=== PATIENT | female | born 1985 | race Hispanic/Latino ===

== ENCOUNTER 2017-06-23 08:24 | Emergency (ER) | payer MEDICAID ==
[2017-06-23 08:31] VITALS: BP 125/66; PULSE 67; RESP 20; TEMP 98.8; O2SAT 98
[2017-06-23 08:32] VITALS: BMI 27.9
--- NOTE | 2017-06-23 09:18 | ED PDOC ---
HPI: Abdomen Time Seen by Provider: 06/23/17 08:37 Chief Complaint (Nursing): Abdominal Pain Chief Complaint (Provider): Pelvic Pain History Per: Patient History/Exam Limitations: no limitations Onset/Duration Of Symptoms: Days (x 3 weeks) Current Symptoms Are (Timing): Still Present Location Of Pain/Discomfort: LLQ Associated Symptoms: Fever Additional Complaint(s): Christiana is a 31 y/o female with a history of PCOS, who presents to the ED with left pelvic pain and intermittent fever with a t-max of 101 for the last 3 weeks. She states that she has taken motrin with mild relief. PMD: None Provided Abnormal Vaginal Bleeding: No Past Medical History Reviewed: Historical Data, Nursing Documentation, Vital Signs Vital Signs: Last Vital Signs Temp 98.8 F 06/23/17 08:30 Pulse 67 06/23/17 08:30 Resp 20 06/23/17 08:30 BP 125/66 06/23/17 08:30 Pulse Ox 98 06/23/17 12:13 - Medical History PMH: COPD, Pneumonia Denies: Chronic Kidney Disease Other PMH: PCOS - Surgical History Surgical History: No Surg Hx - Family History Family History: States: Unknown Family Hx - Home Medications Home Medications: Ambulatory Orders Medication Instructions Recorded Levofloxacin [Levaquin] 500 mg PO DAILY #0 tablet 11/26/15 Ibuprofen [Motrin] 600 mg PO TID 7 Days tab 05/06/16 Albuterol 0.083% [Albuterol 0.083% 2.5 mg IH Q4 PRN #20 neb 08/25/16 Inhal Monica (2.5 mg/3 ml) UD] Albuterol HFA [Ventolin HFA 90 1 - 2 puff IH Q4 PRN #1 inhaler 08/25/16 mcg/actuation (8 g)] Azithromycin [Zithromax] 250 mg PO DAILY #6 tab 08/25/16 Guaifenesin [Mucinex] 600 mg PO BID PRN #14 tab.er.12h 08/25/16 Prednisone 50 mg PO DAILY #4 tab 08/25/16 Naproxen [Naprosyn] 500 mg PO BID PRN #15 tablet 06/23/17 - Allergies Allergies/Adverse Reactions: Allergies Allergy/AdvReac Type Severity Reaction Status Date / Time No Known Allergies Allergy Verified 06/23/17 08:34 Review of Systems ROS Statement: Except As Marked, All Systems Reviewed And Found Negative Constitutional: Positive for: Fever Genitourinary Female: Positive for: Pelvic Pain (left sided) Physical Exam - Reviewed Nursing Documentation Reviewed: Yes Vital Signs Reviewed: Yes - Physical Exam Appears: Positive for: Well, Non-toxic, No Acute Distress Head Exam: Positive for: ATRAUMATIC, NORMAL INSPECTION, NORMOCEPHALIC Skin: Positive for: Normal Color, Warm, DRY Eye Exam: Positive for: Normal appearance ENT: Positive for: Normal ENT Inspection Neck: Positive for: Normal, Painless ROM Cardiovascular/Chest: Positive for: Regular Rate, Rhythm Respiratory: Positive for: CNT, Normal Breath Sounds Gastrointestinal/Abdominal: Positive for: Bowel Sounds, Soft, Tenderness (LLQ). Negative for: Guarding, Rebound Back: Positive for: Normal Inspection Extremity: Positive for: Normal ROM Neurologic/Psych: Positive for: Alert, Oriented - Laboratory Results Result Diagrams: 06/23/17 09:46 06/23/17 09:46 - ECG O2 Sat by Pulse Oximetry: 98 (RA) Pulse Ox Interpretation: Normal Medical Decision Making Medical Decision Making: Initial Impression: Ovarian Cyst, Ovarian Torsion, TOA Initial Plan --CMP --Urine --Urine dipstick --CBC --Blood Culture --Urinalysis --US Pelvic/Transvag --Reevaluation Time: 11:55 US Abd/Pelvis FINDINGS: UTERUS: Measures 3.9 x 5.1 x 9.9 cm. Normal in size and appearance. Moderately heterogeneous uterus a finding noted previously. No fibroid or other mass lesion seen. ENDOMETRIUM: Measures 8.9 mm in diameter. No ultrasound findings to suggest gestational sac, fluid, debris, mass or polyp or other pathologic process within the endometrium. CERVIX: No cervical abnormality identified. RIGHT OVARY: Measures 1.7 x 2.7 x 2.8 cm. No solid mass. Normal flow. LEFT OVARY: Measures 2.2 x 3 x 3.1 cm. No solid mass. Normal flow. FREE FLUID: No significant free fluid noted. OTHER FINDINGS: None. IMPRESSION: No significant or acute findings to account for/ related to the clinical presentation. No significant interval change compared to the prior examination(s ). ~ Scribe Attestation: Documented by Yoni Lepe, acting as a scribe for Dr. Aria Gaspar. Provider Scribe Attestation: All medical record entries made by the Scribe were at my direction and personally dictated by me. I have reviewed the chart and agree that the record accurately reflects my personal performance of the history, physical exam, medical decision making, and the department course for this patient. I have also personally directed, reviewed, and agree with the discharge instructions and disposition. Disposition - Clinical Impression Clinical Impression: Pelvic pain - Disposition Referrals: [facility] [Outside] Disposition: Routine/Home Disposition Time: 12:10 Condition: STABLE Prescriptions: Naproxen [Naprosyn] 500 mg PO BID PRN #15 tablet PRN Reason: Pain, Moderate (4-7) Instructions: Pelvic Pain in Women (ED) Forms: [employer] ([place])
[2017-06-23 09:54] LABS: BASO % 0.6 % (0.0-2.0); EOS # 0.1 K/uL (0.0-0.7); EOS % 2.2 % (0.0-4.0); HEMATOCRIT 39.5 % (34.0-47.0); LYMPH # 2.4 K/uL (1.0-4.3); LYMPH % 41.8 % (20.0-40.0); MEAN CELL VOLUME 92.8 fl (81.0-99.0); MEAN CORPUSCULAR HGB CONC 33.4 g/dL (33.0-37.0); MEAN PLATELET VOLUME 8.3 fl (7.2-11.7); MONO # 0.3 K/uL (0.0-0.8); MONO % 4.9 % (0.0-10.0); NEUT # 2.8 K/uL (1.8-7.0); NEUT % 50.5 % (50.0-75.0); RED CELL DISTRIBUTION WIDTH 15.1 % (11.5-14.5); WHITE BLOOD COUNT 5.6 K/uL (4.8-10.8)
[2017-06-23 10:02] LABS: RBC URINE < 1 /hpf (0-3); URINE BACTERIA RARE (<OCC); URINE BILIRUBIN NEGATIVE (NEGATIVE); URINE BLOOD SMALL (NEGATIVE); URINE COLOR STRAW (YELLOW); URINE GLUCOSE (UA) NEG (Normal); URINE KETONE NEGATIVE (NEGATIVE); URINE LEUKOCYTE ESTERASE NEG Leu/uL (Negative); URINE PROTEIN NEGATIVE (NEGATIVE); URINE UROBILINOGEN 0.2-1.0 mg/dL (0.2-1.0); WBC URINE < 1 /hpf (0-5)
[2017-06-23 10:10] LABS: ALB/GLOB RATIO 1.3 (1.0-2.1); ALKALINE PHOSPHATASE 85 U/L (38-126); ALT/SGPT 30 U/L (9-52); AST/SGOT 31 U/L (14-36); BILIRUBIN,TOTAL 0.4 mg/dl (0.2-1.3); BLOOD UREA NITROGEN 4 mg/dl (7-17); CALCIUM 9.5 mg/dL (8.4-10.2); CARBON DIOXIDE 26 mmol/L (22-30); CHLORIDE 103 mmol/L (98-107); GFR AFRICAN-AMERICAN > 60; GLUCOSE,RANDOM 120 mg/dL (65-105); POTASSIUM 3.9 MMOL/L (3.6-5.0); SODIUM 143 mmol/l (132-148); TOTAL PROTEIN 7.7 G/DL (6.3-8.2)
--- NOTE | 2017-06-23 11:56 | US ---
HISTORY: Left lower quadrant pain 3 weeks duration. LMP 05/31/2017. COMPARISON: 05/06/2016. TECHNIQUE: Transabdominal, transvaginal. Real -time technique with 2D, duplex and color Doppler. FINDINGS: UTERUS: Measures 3.9 x 5.1 x 9.9 cm. Normal in size and appearance. Moderately heterogeneous uterus a finding noted previously. No fibroid or other mass lesion seen. ENDOMETRIUM: Measures 8.9 mm in diameter. No ultrasound findings to suggest gestational sac, fluid, debris, mass or polyp or other pathologic process within the endometrium. CERVIX: No cervical abnormality identified. RIGHT OVARY: Measures 1.7 x 2.7 x 2.8 cm. No solid mass. Normal flow. LEFT OVARY: Measures 2.2 x 3 x 3.1 cm. No solid mass. Normal flow. FREE FLUID: No significant free fluid noted. OTHER FINDINGS: None. IMPRESSION: No significant or acute findings to account for/ related to the clinical presentation. No significant interval change compared to the prior examination(s).
== END 2017-06-23 12:33 | disposition home or self-care (01) ==
LOC: H.ER 08:24
DX: R10.2 Pelvic and perineal pain (principal); Z84.2 Family history of other diseases of the genitourinary system
CPT/HCPCS: 76830; 76856; 80053; 81003; 85025; 87040; 96374; 99282; J1885